=== PATIENT | female | born 1950 | race Caucasian/White ===

== ENCOUNTER 2020-03-05 15:21 | Outpatient (CLI) | payer MEDICARE ==
--- NOTE | 2020-03-05 16:56 | RAD ---
PA AND LATERAL VIEWS CHEST: 03/05/20 HISTORY: Chest pain, COVID positive on 02/12/20. COMPARISON: None. FINDINGS/IMPRESSION: The heart size is normal. The lungs are expanded with mild patchy infiltrates in the lower lung field s. Possibility of pneumonia should be considered. No pneumothoraces or pleural effusions are seen. POS: OFF
== END 2020-03-05 15:22 | disposition home or self-care (01) ==
LOC: MADRAD 15:21
PROVIDERS: ATTEND Family Medicine
DX: U07.1 COVID-19 (principal); R91.8 Other nonspecific abnormal finding of lung field
CPT/HCPCS: 71046

== ENCOUNTER 2021-12-03 07:39 | Emergency (ER) | payer MEDICARE ==
[2021-12-03 08:43] LABS: #Basophils 0.1 thou/uL (0.0-0.2); #Eosinphils 0.1 thou/uL (0.0-0.7); #Monocytes 0.5 thou/uL (0.11-0.59); #Neutrophils 5.8 thou/uL (1.40-6.50); %Basophils 1.2 % (0.0-1.0); %Eosinophils 1.3 % (0.0-10.0); %Lymphocytes 12.8 % (21.0-51.0); %Monocytes 6.8 % (0.0-10.0); Hemoglobin 14.1 g/dL (12.0-16.0); Mean Corpuscular HGB CONC 33.1 g/dL (32.0-36.0); Mean Corpuscular Hemoglobin 30.7 pg (27.0-31.0); Mean Corpuscular Volume 92.8 fL (78.0-98.0); Mean Platelet Volume 10.3 fL (7.4-10.4); Platelet Count 175 thou/uL (130-400); RBC Distribution Width 10.8 % (11.5-14.5); Red Blood Cell (RBC) Count 4.58 mill/uL (4.20-5.40); White Blood Cell (WBC) Count 7.5 thou/uL (4.8-10.8)
[2021-12-03] MEDS ORDERED: Iopamidol 370 76% 125 ML VIAL FS ONE (08:50)
[2021-12-03 09:00] LABS: ALT (SGPT) 41 U/L (8-55); AST (SGOT) 30 U/L (5-34); Albumin 4.4 g/dL (3.4-4.8); Alkaline Phosphatase 115 U/L (40-110); Anion Gap 15 mmol/L (10-20); BUN (Urea Nitrogen) 12 mg/dL (9.8-20.1); Bilirubin, Total 0.6 mg/dL (0.2-1.2); Calc. Creatinine Clearance 0 mL/min (70-130); Calcium 9.5 mg/dL (7.8-10.44); Carbon Dioxide 24 mmol/L (23-31); Chloride 107 mmol/L (98-107); Estimated GFR 93; Globulin 3.4 g/dL (2.4-3.5); Glucose 143 mg/dL (83-110); Potassium 4.1 mmol/L (3.5-5.1); Protein, Total 7.8 g/dL (5.8-8.1); Sodium 142 mmol/L (136-145)
[2021-12-03] MEDS ORDERED: Sodium Chloride 0.9% 100 ML BAG ONE (09:00)
[2021-12-03 09:04] LABS: Prothrombin Time 13.3 sec (12.0-14.7)
[2021-12-03 09:43] LABS: CKMB 1.1 ng/mL (0-6.6)
[2021-12-03] MEDS ORDERED: Aspirin Chewable 81 MG TAB ONE (10:37)
[2021-12-03] MEDS ORDERED: Meclizine HCl 25 MG TAB ONE (10:37)
== END 2021-12-03 12:53 | disposition short-term general hospital (02) ==
LOC: MADERS 07:39
DX: I21.4 Non-ST elevation (NSTEMI) myocardial infarction (principal); R29.700 NIHSS score 0
CPT/HCPCS: 70450; 70496; 70498; 80053; 82553; 84484; 85025; 85610; 93005; Q9967

== ENCOUNTER 2024-06-17 10:39 | Emergency (ER) | payer MEDICARE | END 2024-06-17 11:24 | disposition home or self-care (01) | LOC: MADERS 10:39 | DX: U07.1 COVID-19 (principal) | CPT/HCPCS: 87428; 99283 ==